=== PATIENT | male | born 1980 | race Caucasian/White ===

== ENCOUNTER 2019-10-29 10:31 | Emergency (ER) | payer OTHER ==
[~2019-10-29] VITALS: Ht 182.9 cm; Wt 86.2 kg
[~2019-10-29 10:31] MED LIST: BENADRYL25 MG PO; CEPH500 PO; CETI10 PO; DIPH50 PO; HYDACE5 PO; METPRE4DP PO; PRED10 PO; PRED20 PO; SULTRIDS PO
[2019-10-29] MEDS ORDERED: BENADRYL25 MG PO (10:44)
== END 2019-10-29 11:07 | disposition home or self-care (01) ==
LOC: ER 10:31
DX: L23.7 Allergic contact dermatitis due to plants, except food (principal)
CPT/HCPCS: 96372; 99283-25; J3301

== ENCOUNTER 2021-07-07 20:52 | Emergency (ER) | payer OTHER ==
[~2021-07-07] VITALS: Ht 182.9 cm; Wt 90.7 kg
[2021-07-07] MEDS ORDERED: CEPH500 PO (21:15)
[2021-07-07] MEDS ORDERED: Bactrim Ds Tab1 EACH PO (21:15)
[2021-07-07] MEDS ORDERED: Mupirocin22 GM TOP (21:15)
[2021-07-07] MEDS ORDERED: BACITO TOP (21:16)
== END 2021-07-07 21:30 | disposition home or self-care (01) ==
LOC: ER 20:52
DX: T23.072A Burn of unspecified degree of left wrist, initial encounter (principal); T31.0 Burns involving less than 10% of body surface; I89.1 Lymphangitis
CPT/HCPCS: 99283; A9270